=== PATIENT | male | born 1985 | race African-American/Black ===

== ENCOUNTER 2018-06-06 06:35 | Emergency (ER) | payer MEDICARE ==
[2018-06-06] MEDS ORDERED: Ondansetron PF 4 MG/2 ML Vial ONE (07:10)
[2018-06-06] MEDS ORDERED: Ketorolac Tromethamine 30 MG/ML VIAL ONE (07:10)
[2018-06-06] MEDS ORDERED: Lactated Ringer's 1,000 ML ONE (07:23)
[2018-06-06 07:29] LABS: #Basophils 0.1 thou/uL (0.0-0.2); #Eosinphils 0.1 thou/uL (0.0-0.7); #Lymphocytes 0.7 thou/uL (1.20-3.40); #Monocytes 0.6 thou/uL (0.11-0.59); #Neutrophils 5.4 thou/uL (1.40-6.50); %Basophils 1.2 % (0.0-1.0); %Eosinophils 1.1 % (0.0-10.0); %Lymphocytes 10.2 % (21.0-51.0); %Monocytes 8.5 % (0.0-10.0); Hemoglobin 13.5 g/dL (14.0-18.0); Mean Corpuscular HGB CONC 32.6 g/dL (32.0-36.0); Mean Corpuscular Volume 89.1 fL (78.0-98.0); Mean Platelet Volume 8.1 fL (7.4-10.4); Platelet Count 83 thou/uL (130-400); RBC Distribution Width 12.6 % (11.5-14.5); Red Blood Cell (RBC) Count 4.64 mill/uL (4.70-6.10); White Blood Cell (WBC) Count 6.8 thou/uL (4.8-10.8)
[2018-06-06 07:41] LABS: ALT (SGPT) 15 U/L (8-55); AST (SGOT) 23 U/L (5-34); Albumin 4.1 g/dL (3.5-5.0); Alkaline Phosphatase 118 U/L (40-150); Anion Gap 14 mmol/L (10-20); BUN (Urea Nitrogen) 24 mg/dL (8.9-20.6); Bilirubin, Total 1.4 mg/dL (0.2-1.2); Calc. Creatinine Clearance 0 mL/min (70-130); Calcium 9.5 mg/dL (7.8-10.44); Carbon Dioxide 28 mmol/L (22-29); Chloride 100 mmol/L (98-107); Estimated GFR-MDRD 31; Globulin 3.7 g/dL (2.4-3.5); Glucose 143 mg/dL (70-105); Lipase 28 U/L (8-78); Potassium 3.9 mmol/L (3.5-5.1); Protein, Total 7.8 g/dL (6.0-8.3); Sodium 138 mmol/L (136-145)
--- NOTE | 2018-06-06 08:07 | CT ---
FCTA of the chest and abdomen utilizing an aortic dissection protocol and 3-D reformatted imaging INDICATION: Right-sided abdominal pain that started last night and has gradually worsened. COMPARISON: CT the abdomen and pelvis dated June 22, 2016. FINDINGS: Aorta: There is postsurgical change of an aortic valve replacement. No acute aortic stenosis, occlusi on or aneurysmal formation is evident. The renal arteries are duplicated and widely patent. The SMA, celiac and RADHA arteries are widely patent. Central pulmonary artery: No central pulmonary embolus demonstrated. Additional thorax findings: There is a loculated small moderate right-sided pleural effusion. There i s moderate to severe cardiomegaly. There are areas of subsegmental volume loss within both lower lobe s. There is a calcified granuloma in the left lower lobe. There are mildly prominent lymph nodes seen within the prevascular space. Additional abdominal findings: When compared to the prior CT the abdomen and pelvis dated 06/22/2016 t here are stable changes of cirrhosis with portal hypertension. There is been interval development of a large intraparenchymal hematoma and surrounding perirenal hematoma involving the right kidney. The hematoma within the right retroperitoneum involving and surrounding the right kidney measures 13.3 x 12.4 x 22.4 cm. There is a focus of active extravasation seen along the posterior aspect of the lower pole the right kidney on image 123 of series 2. The extent of the hematoma is displacing the right k idney anteriorly, abutting the posterior aspect of the right hepatic lobe. There are small enhancing lesions involving the liver which were not appreciated on the prior exam. O ne is seen within the medial left hepatic lobe measuring 9.8 mm on image 84 series 2. An additional i s seen within the anterior right hepatic dome measuring 1.2 cm on image 78 of series 2. The pancreas, adrenal glands and left kidney appear within normal limits. The spleen is enlarged warren uring 15 cm. The unopacified large and small bowel appear within normal limits. Osseous structures: No acute osseous abnormality is evident. There is mild scattered degenerative and osteoarthritic change. IMPRESSION: 1. No acute aortic stenosis, occlusion or aneurysmal formation. 2. Large right renal and perirenal hematoma with areas of active extravasation. The extent of the hem atoma limits evaluation for underlying renal mass. A follow-up CT utilizing renal mass protocol will be helpful at a later time to evaluate for underlying renal lesion. Findings were called to Dr. Wheeler at 8:00 AM on 06/06/2018. This patient reportedly is on blood thinners. 3. Arterially enhancing lesions in a background of cirrhosis is concerning for possible hepatocellula r carcinoma or metastatic disease. At a later time following treatment of the patient's renal hemorrh age, a follow-up CT or MRI of the abdomen utilizing a liver mass protocol is recommended. 4. Cardiomegaly with pleural effusions is suspicious for mild cardiac decompensation or CHF.
[2018-06-06 08:11] LABS: PTT 36.4 SEC (22.9-36.1)
[2018-06-06 08:43] LABS: Bilirubin Small (Negative); Blood, Urine Moderate (Negative); Clarity Clear (Clear); Glucose, Urine (Dipstick) Negative (Negative); Leukocyte Negative (Negative); Nitrite Negative (Negative); Protein, Urine (Dipstick) > or equal to 300 mg/dL (Neg-Trace); Specific Gravity, Urine 1.015 (1.005-1.030); pH, Urine 6.5 (5.0-9.0)
[2018-06-06 08:53] LABS: Bacteria/HPF Rare-Few HPF (None Seen); Other Microscopic Description NO; Squamous Epithelial None Seen HPF (0-3); WBC/HPF 0-3 HPF (0-3)
[2018-06-06] MEDS ORDERED: Iopamidol 370 76% 100 ML VIAL ONE (09:00)
== END 2018-06-06 08:45 | disposition home or self-care (01) ==
LOC: NAV ERS 06:35
DX: M79.81 Nontraumatic hematoma of soft tissue (principal); M10.9 Gout, unspecified; I48.92 Unspecified atrial flutter; I11.0 Hypertensive heart disease with heart failure; I50.9 Heart failure, unspecified; G47.30 Sleep apnea, unspecified; E66.9 Obesity, unspecified; Z79.01 Long term (current) use of anticoagulants; Z79.899 Other long term (current) drug therapy
CPT/HCPCS: 71275; 80053; 81003; 81015; 83690; 85025; 85610; 85730; 96374; 96375; J1885; J2405; J7120; Q9967

== ENCOUNTER 2019-11-04 02:21 | Emergency (ER) | payer MEDICARE ==
[2019-11-04] MEDS ORDERED: predniSONE 20 MG TAB ONE (03:04)
[2019-11-04] MEDS ORDERED: traMADol HCl 50 MG TAB ONE (05:30)
== END 2019-11-04 05:30 | disposition home or self-care (01) ==
LOC: NAV ERS 02:21
DX: M10.9 Gout, unspecified (principal); E66.9 Obesity, unspecified; I13.0 Hypertensive heart and chronic kidney disease with heart failure and stage 1 through stage 4 chronic kidney disease, or unspecified chronic kidney disease; I50.9 Heart failure, unspecified; N18.9 Chronic kidney disease, unspecified; G47.30 Sleep apnea, unspecified; I48.92 Unspecified atrial flutter; Z99.2 Dependence on renal dialysis; Z79.01 Long term (current) use of anticoagulants; Z79.899 Other long term (current) drug therapy
CPT/HCPCS: 99283; J7512